=== PATIENT | male | born 1955 | race Caucasian/White ===

== ENCOUNTER 2019-02-18 12:25 | Emergency (ER) | payer MEDICAID ==
[~2019-02-18] VITALS: Ht 162.6 cm; Wt 70.3 kg
[2019-02-18] MEDS ORDERED: CARV3.122 PO (12:47)
[2019-02-18] MEDS ORDERED: RAMI2.5C2 PO (12:47)
[2019-02-18] MEDS ORDERED: CLOP75TA15 PO (12:47)
[2019-02-18] MEDS ORDERED: TAMS-3 PO (12:47)
[2019-02-18] MEDS ORDERED: ASPI81TA31 PO (12:47)
[2019-02-18] MEDS ORDERED: SIMV-49 PO (12:47)
--- NOTE | 2019-02-18 12:57 | NUR ---
PT IS IN ROOM #2B. DR OLVERA EVALUATED THE PT.
[2019-02-18 13:08] LABS: *BILIRUBIN,URIN NEGATIVE (NEGATIVE); *BLOOD, URINE NEGATIVE (NEGATIVE); *CLARITY,URINE CLEAR (CLEAR); *COLOR,URINE YELLOW (YELLOW); *KETONES,URINE NEGATIVE (NEGATIVE); *UROBILINOGEN,URINE 0.2 E.U./dl (NORMAL); LEUKOCYTE ESTERASE ,URINE NEGATIVE (NEGATIVE); NITRITE, URINE NEGATIVE (NEGATIVE); UGLUCOSE NEGATIVE (NEGATIVE)
[2019-02-18 13:16] LABS: CREATININE 0.9 mg/dL (0.6-1.3); POTASSIUM 4.2 mmol/L (3.5-5.1)
[2019-02-18 13:21] LABS: BACTERIA,URINE NONE SEEN /HPF (NONE SEEN); MUCUS,URINE FEW /LPF (0-FEW); RBC,URINE 0-3 /HPF (0-3); SQUAMOUS EPITHELIAL CELL,UR FEW /HPF (NONE SEEN); WBC,URINE 0-3 /HPF (0-3)
[2019-02-18 13:38] LABS: BASOPHILS % (AUTO) 0.9 % (0.0-2.0); EOSINOPHILS # (AUTO) 0.4 K/uL (0.0-0.7); EOSINOPHILS % (AUTO) 6.9 % (0.0-7.0); HEMATOCRIT 38.2 % (36.7-47.1); LYMPHOCYTES # (AUTO) 1.9 K/uL (20.0-40.0); LYMPHOCYTES % (AUTO) 33.5 % (20.5-51.5); MEAN CORPUSCULAR HEMOGLOBIN 32.4 uug (23.8-33.4); MEAN CORPUSCULAR HGB CONC 34 g/dL (32.5-36.3); MEAN CORPUSCULAR VOLUME 94.8 fL (73.0-96.2); MONOCYTES # (AUTO) 0.5 K/uL (2.0-10.0); MONOCYTES % (AUTO) 9.6 % (0.0-11.0); NEUTROPHILS # (AUTO) 2.7 K/uL (1.8-8.9); NEUTROPHILS % (AUTO) 49.1 % (38.5-71.5); PLATELET COUNT (AUTO) 284 K/uL (152-348); RED BLOOD CELL COUNT(AUTO) 4.02 MIL/uL (4.06-5.63); WHITE BLOOD COUNT (AUTO) 5.6 K/uL (3.6-10.2)
[2019-02-18] MEDS ORDERED: HYDROCODONE/APAP 5-325MG TABLET ONE (14:13)
[2019-02-18] MEDS ORDERED: HYDROCODONE/APAP 5-325MG TABLET PO ONE (14:15)
--- NOTE | 2019-02-18 14:42 | NUR ---
PT WAS D/C TO HOME AFTER DR OLVERA RE-EVALUATION. D/C INSTRUCTIONS GIVEN TO THE PT AND TO HIS SON.
[2019-02-18 14:43] VITALS: BP 141/78
== END 2019-02-18 14:45 | disposition home or self-care (01) ==
LOC: ER 12:32
DX: R33.9 Retention of urine, unspecified (principal); E78.00 Pure hypercholesterolemia, unspecified; Z79.82 Long term (current) use of aspirin; Z79.899 Other long term (current) drug therapy; Z79.01 Long term (current) use of anticoagulants
CPT/HCPCS: 36415; 51702; 85025; A4663